=== PATIENT | male | born 1990 | race African-American/Black ===

== ENCOUNTER 2019-06-28 11:44 | Emergency (ER) | payer OTHER ==
[~2019-06-28] VITALS: Ht 175.3 cm; Wt 63.6 kg
[2019-06-28 11:44] VITALS: BP 133/77
[2019-06-28] MEDS ORDERED: IBUP-1022 PO (12:23)
[2019-06-28] MEDS ORDERED: ROBA750T4 PO (12:23)
== END 2019-06-28 12:30 | disposition home or self-care (01) ==
LOC: M ED 11:44
DX: M62.830 Muscle spasm of back (principal)

== ENCOUNTER 2021-06-22 07:52 | Emergency (ER) | payer OTHER ==
[~2021-06-22] VITALS: Ht 175.3 cm; Wt 90.5 kg
[~2021-06-22 07:52] MED LIST: IBUP-1022 PO; ROBA750T4 PO
[2021-06-22] MEDS ORDERED: IBUP200C28 PO (08:07)
[2021-06-22] MEDS ORDERED: KETOROLAC 60MG 2ML VIAL IM ONE (08:50)
[2021-06-22] MEDS ORDERED: LIDOCAINE 5% (LIDODERM) PATCH TD ONE (08:50)
[2021-06-22] MEDS ORDERED: methocarbamoL 750 MG TAB PO ONE (08:50)
--- NOTE | 2021-06-22 09:18 | REP ---
INDICATION: low back pain, fall 1 year ago. COMPARISON: None. TECHNIQUE: Five views lumbosacral spine. FINDINGS: There is no compression fracture or malalignment. There is normal lumbar lordosis. Disc spaces are well preserved. Posterior elements are intact. IMPRESSION: Negative lumbosacral spine series. <Electronically signed by Sanya Palm > 06/22/21 0905
[2021-06-22] MEDS ORDERED: NAPR-837 PO (10:10)
[2021-06-22] MEDS ORDERED: METH-1165 PO (10:10)
[2021-06-22] MEDS ORDERED: ASPE4PAD TOP (10:10)
[2021-06-22 10:24] VITALS: BP 148/87
[2021-06-22] MEDS ORDERED: **NOTE PATIENT COMMENT** MISC XX SCH (21:00)
== END 2021-06-22 10:25 | disposition home or self-care (01) ==
LOC: M ED 07:52
DX: M62.830 Muscle spasm of back (principal)
CPT/HCPCS: 72110; 96372; 99283; J1885

== ENCOUNTER 2021-07-06 07:53 | Emergency (ER) | payer OTHER ==
[~2021-07-06] VITALS: Ht 175.3 cm; Wt 90.8 kg
[~2021-07-06 07:53] MED LIST changes: +ASPE4PAD TOP; +IBUP200C28 PO; +METH-1165 PO; +NAPR-837 PO
--- NOTE | 2021-07-06 09:45 | REP ---
INDICATION: back pain radiating down legs. COMPARISON: None. TECHNIQUE: Contiguous 4 mm thick axial projection images were obtained through the lumbar spine. 2D sagittal and coronal reconstructions were performed. FINDINGS: There is mild anterior wedging of T12 through L3, which could be developmental or acquired. There is maintenance of the normal lumbar lordosis. There is no scoliosis. There is no spondylolisthesis. The facet joints appear normal. At L3-4 there is a broad-based central disc protrusion and bilateral ligamentum flavum hypertrophy, measuring 4 mm in thickness, with mild compression of the thecal sac. There is mild lateral recess stenosis bilaterally. There is no foraminal narrowing. At L4-5 there is a broad-based central disc protrusion and bilateral ligamentum flavum hypertrophy, measuring 4 mm in thickness, with mild compression of the thecal sac. There is mild lateral recess stenosis bilaterally. There is no foraminal narrowing. The SI joints are normal. The perivertebral soft tissues are normal. IMPRESSION: 1. Mild anterior wedging of T12 through L3 which could be developmental or acquired. 2. Disc protrusions and ligamentum flavum hypertrophy at L3-4 and L4-5 with resultant compression of the thecal sac, without central canal stenosis, and bilateral lateral recess stenosis. <Electronically signed by Alberto Nation > 07/06/21 [id number]
[2021-07-06] MEDS ORDERED: METH-1165 PO (09:55)
[2021-07-06 10:12] VITALS: BP 141/83
== END 2021-07-06 10:21 | disposition home or self-care (01) ==
LOC: M ED 07:53
DX: M51.26 Other intervertebral disc displacement, lumbar region (principal); M51.27 Other intervertebral disc displacement, lumbosacral region; G89.29 Other chronic pain

== ENCOUNTER 2021-07-07 10:50 | Emergency (ER) | payer OTHER ==
[~2021-07-07] VITALS: Ht 175.3 cm; Wt 89.1 kg
[2021-07-07] MEDS ORDERED: ONDANSETRON 4MG/2ML VIAL IV ONE (12:10)
[2021-07-07] MEDS ORDERED: MORPHINE 4 MG/ML 1ML VIAL/SYRINGE (J2270) IV ONE (12:10)
[2021-07-07] MEDS ORDERED: NS 1,000 ML IV ONE (12:10)
[2021-07-07 12:34] LABS: BASO # 0.1 10^3/uL (0.0-0.2); BASO % 0.9 % (0.0-1.0); EOS # 0.2 10^3/uL (0.0-0.5); EOS % 2.8 % (0.0-3.0); HEMATOCRIT 52.7 % (42.0-52.0); HEMOGLOBIN 16.7 g/dl (13.5-17.5); LYMPH # 1.4 10^3/uL (1.5-5.0); LYMPH % 26.6 % (24.0-44.0); MEAN CORPUSCULAR HEMOGLOBIN 24.5 pg (27.0-33.0); MEAN CORPUSCULAR HGB CONC 31.7 g/dl (32.0-36.5); MEAN CORPUSCULAR VOLUME 77.4 fl (80.0-96.0); MONO # 0.4 10^3/uL (0.0-0.8); MONO % 7.2 % (2.0-8.0); NEUTROPHILS # 3.4 10^3/uL (1.5-8.5); NEUTROPHILS % 62.3 % (36.0-66.0); PLATELET COUNT, AUTOMATED 245 10^3/uL (150-450); RED BLOOD COUNT 6.81 10^6/uL (4.30-6.10); WHITE BLOOD COUNT 5.4 10^3/uL (4.0-10.0)
--- NOTE | 2021-07-07 12:49 | REP ---
INDICATION: lower abd pain, tender, scrotal/penile pain, micro hematuria. COMPARISON: None. TECHNIQUE: Standard helical technique without intravenous or oral bowel preparatory contrast administration. Stone protocol utilized due to hematuria FINDINGS: Respiratory motion artifact is seen in the lung bases which are otherwise clear. Limited evaluation of the solid intra-abdominal organs and gallbladder show no gross abnormalities. Limited evaluation of the pancreas, adrenal glands, and kidneys show no gross abnormalities. There is no nephroureterolithiasis, hydronephrosis, or hydroureter. There are no urinary bladder calcifications. Limited evaluation of the bowel loops and the mesenteries show no gross abnormalities. There is respiratory motion artifact obscuring the detail on multiple abdominal images. The osseous structures are within normal limits. IMPRESSION: There is no evidence of an acute abnormality. <Electronically signed by Asher Toro > 07/07/21 [id number]
--- NOTE | 2021-07-07 12:54 | REP ---
INDICATION: scrotal, penile pain, micro hematuria, tingling groin. COMPARISON: None. TECHNIQUE: Real-time sonographic evaluation of the testicles with Doppler. FINDINGS: Right testicle measures 4 x 2.2 x 3.2 cm and left testicle measures 3.6 x 1.9 x 2.8 cm. The testicular parenchymal echo pattern and vascular pattern is within normal limits. The right testicular RI is 0.54 and the left is 0.51. There is no evidence of a varicocele or hydrocele. IMPRESSION: Within normal limits <Electronically signed by Asher Toro > 07/07/21 1254
[2021-07-07 12:57] LABS: ALBUMIN 4.2 GM/DL (3.2-5.2); BILIRUBIN,DIRECT 0.2 MG/DL (0.0-0.2); BILIRUBIN,TOTAL 1.2 MG/DL (0.2-1.0); TOTAL PROTEIN 8.1 GM/DL (6.4-8.2)
[2021-07-07] MEDS ORDERED: KETOROLAC 30 MG/ML 1ML VIAL IV ONE (17:20)
--- NOTE | 2021-07-07 17:35 | REPVR ---
PROCEDURE INFORMATION: Exam: MR Lumbar Spine Without Contrast Exam date and time: 07/07/2021 4:07 PM Age: 31 years old Clinical indication: Low back pain; Additional info: Tingling, pain groin, HX low back pain TECHNIQUE: Imaging protocol: Multiplanar magnetic resonance images of the lumbar spine without intravenous contrast. COMPARISON: CT Spine, lumbar w/o contrast 07/06/2021 8:57 AM FINDINGS: Vertebrae: No acute fracture in the lumbar spine. Mild straightening of the normal lumbar lordosis. 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 Spinal cord: The conus medullaris is normal appearance of the T12-L1 level. L1-L2: No significant spinal canal stenosis or neural foraminal narrowing. L2-L3: Mildly bulging annulus with resultant mild spinal canal stenosis but no significant narrowing of the lateral recesses or neural foramen. L3-L4: Mild spinal canal stenosis without obvious compression of the exiting L4 nerve roots. The neural foramina are patent. L4-L5: No significant spinal canal stenosis or neural foraminal narrowing. L5-S1: No significant spinal canal stenosis or neural foraminal narrowing. Soft tissues: Unremarkable. 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 No evidence of disc herniation or neural compromise. Electronically signed by: Joyce Ramirez On 07/07/2021 17:34:56 PM
[2021-07-07 18:24] VITALS: BP 134/84
--- NOTE | 2021-07-08 15:07 | ED PDOC ---
Post-Departure Follow-Up radiology repo rtfaxed to [facility] Elisabeth Guzmán MD Jul 08, 2021 15:07
== END 2021-07-07 18:26 | disposition home or self-care (01) ==
LOC: M ED 10:50
DX: R10.30 Lower abdominal pain, unspecified (principal); M54.5 Low back pain; N50.82 Scrotal pain
CPT/HCPCS: 72148; 74176; 76870; 80047; 80076; 81001; 83690; 85025; 93976; 96361; 96374; 96375; 99284; J1885; J2270; J2405

== ENCOUNTER 2021-08-20 14:46 | Emergency (ER) | payer OTHER ==
[~2021-08-20] VITALS: Ht 175.3 cm; Wt 81.8 kg
[2021-08-20] MEDS ORDERED: METH4PACK (14:53)
[2021-08-20] MEDS ORDERED: GABA-282 (14:53)
--- OUTSIDE RECORDS SUMMARY | 2021-08-20 14:55 | CCD ---
Author Author [facility] Organization [facility] Address Unknown Phone Unavailable Care Team Providers Care Log Sawyer Name Role Phone Feola, T Brianne PA Unavailable Unavailable Feola, T Brianne PA Unavailable Unavailable Feola, T Brianne PA Unavailable Unavailable Feola, T Brianne PA Unavailable Unavailable Feola, T Brianne PA Unavailable Unavailable Feola, T Brianne PA Unavailable Unavailable Feola, T Brianne PA Unavailable Unavailable Feola, T Brianne PA Unavailable Unavailable Feola, T Brianne PA Unavailable Unavailable Feola, T Brianne PA Unavailable Unavailable Feola, T Brianne PA Unavailable Unavailable Feola, T Brianne PA Unavailable Unavailable Feola, T Brianne PA Unavailable Unavailable Feola, T Brianne PA Unavailable Unavailable Feola, T Brianne PA Unavailable Unavailable Feola, T Brianne PA Unavailable Unavailable Feola, T Brianne PA Unavailable Unavailable Feola, T Brianne PA Unavailable Unavailable Feola, T Brianne PA Unavailable Unavailable Feola, T Brianne PA Unavailable Unavailable Feola, T Brianne PA Unavailable Unavailable Feola, T Brianne PA Unavailable Unavailable Feola, T Brianne PA Unavailable Unavailable Feola, T Brianne PA Unavailable Unavailable Feola, T Brianne PA Unavailable Unavailable Feola, T Brianne PA Unavailable Unavailable Feola, T Brianne PA Unavailable Unavailable Feola, T Brianne PA Unavailable Unavailable Feola, T Brianne PA Unavailable Unavailable Feola, T Brianne PA Unavailable Unavailable Feola, T Brianne PA Unavailable Unavailable Feola, T Brianne PA Unavailable Unavailable Feola, T Brianne PA Unavailable Unavailable Feola, T Brianne PA Unavailable Unavailable Feola, T Brianne PA Unavailable Unavailable Feola, T Brianne PA Unavailable Unavailable Feola, T Brianne PA Unavailable Unavailable Feola, T Brianne PA Unavailable Unavailable Feola, T Brianne PA Unavailable Unavailable Feola, T Brianne PA Unavailable Unavailable Feola, T Brianne PA Unavailable Unavailable Re-disclosure Warning The records that you are about to access may contain information from federally-assisted alcohol or drug abuse programs. If such information is present, then the following federally mandated warning applies: This information has been disclosed to you from records protected by federal confidentiality rules (42 CFR part 2). The federal rules prohibit you from making any further disclosure of this information unless further disclosure is expressly permitted by the written consent of the person to whom it pertains or as otherwise permitted by 42 CFR part 2. A general authorization for the release of medical or other information is NOT sufficient for this purpose. The Federal rules restrict any use of the information to criminally investigate or prosecute any alcohol or drug abuse patient.The records that you are about to access may contain highly sensitive health information, the redisclosure of which is protected by Article 27-F of the [facility] Public Health law. If you continue you may have access to information: Regarding HIV / AIDS; Provided by facilities licensed or operated by the [facility] Office of Mental Health; or Provided by the [facility] Office for People With Developmental Disabilities. If such information is present, then the following [facility] mandated warning applies: This information has been disclosed to you from confidential records which are protected by state law. State law prohibits you from making any further disclosure of this information without the specific written consent of the person to whom it pertains, or as otherwise permitted by law. Any unauthorized further disclosure in violation of state law may result in a fine or nursing home sentence or both. A general authorization for the release of medical or other information is NOT sufficient authorization for further disc losure. Encounters Encounter Providers Location Date Indications Data Source(s ) Outpatient Attender: Brianne Bay CASTANON 021 06:36:48 PM EDT - 04/04/2021 07:15:17 PM EDT [facility] ([facility] ) Outpatient 04/04/2021 06:28:40 PM EDT [facility] ([facility]) Immunizations Vaccine Date Status Description Data Source(s) COVID-19 VACCINE Moderna 02/18/2021 12:00:00 AM EDT completed [facility] Vaccine Series Complete: YESThis Data wa s Submitted to [facility] Via G[employer]mpact Driven. COVID-19 VACCINE Moderna 01/21/2021 12:00:00 AM EDT completed [facility] Vaccine Series Complete: NOThis Data was Submitted to [facility] Via Optony. Medications No Information Insurance Providers Payer name Policy type / Coverage type Policy ID Covered alliance party ID Covered alliance party's relationship to saavedra Policy Saavedra Plan Information / [id number] Self 01 [id number] [facility] [employer] [id number] Problems, Conditions, and Diagnoses No Information Surgeries/Procedures No Information Results ID Date Data Source [id number] 04/04/2021 05:58:00 PM EDT [facility] Name Value Range Interpretation Code Description Data Emy rce(s) Supporting Document(s) SARS-CoV-2 RNA Resp Ql YOBANY+probe NOT DETECTED [facility] This lab was ordered by LESLEE palbo and reported by LESLEE Mccormick. Procedure Social History No Information
[2021-08-20] MEDS ORDERED: KETOROLAC 60MG 2ML VIAL IM ONE (21:30)
--- OUTSIDE RECORDS SUMMARY | 2021-08-20 21:38 | CCD ---
Author Author [facility] Organization [facility] Address Unknown Phone Unavailable Care Team Providers Care Instructor Tap Dancing Name Role Phone Feola, T Brianne PA [...] is protected by Article 27-F of the [facility] Public Health law. If you continue you may have access to information: Regarding HIV / AIDS; Provided by facilities licensed or operated by the [facility] Office of Mental Health; or Provided by the [facility] Office for People With Developmental Disabilities. If such information is present, then the following [facility] mandated warning applies: This information has been [...] law may result in a fine or prison sentence or both. A general authorization for the release of medical or other information is NOT sufficient authorization for further disc losure. Encounters Encounter Providers Location Date Indications Data Source(s ) Outpatient Attender: Brianne Bay CASTANON 021 06:36:48 PM EDT - 04/04/2021 07:15:17 PM EDT [facility] ([facility] ) Outpatient 04/04/2021 06:28:40 PM EDT [facility] ([facility]) Immunizations Vaccine Date Status Description Data Source(s) COVID-19 VACCINE Moderna 02/18/2021 12:00:00 AM EDT completed [facility] Vaccine Series Complete: YESThis Data wa s Submitted to [facility] Via [email or web address]. COVID-19 VACCINE Moderna 01/21/2021 12:00:00 AM EDT completed [facility] Vaccine Series Complete: NOThis Data was Submitted to [facility] Via Vaunte. Medications No Information Insurance Providers Payer name Policy type / Coverage type Policy ID Covered republican ID Covered republican's relationship to saavedra Policy Saavedra Plan Information / [id number] Self 01 [id number] [facility] [employer] [id number] Problems, Conditions, and Diagnoses No Information Surgeries/Procedures No Information Results ID Date Data Source [id number] 04/04/2021 05:58:00 PM EDT [facility] Name Value Range Interpretation Code Description Data Emy rce(s) Supporting Document(s) SARS-CoV-2 RNA Resp Ql YOBANY+probe NOT DETECTED [facility] This lab was ordered by LESLEE pablo and reported by LESLEE Mccormick. Procedure Social History No Information
[2021-08-20 22:06] VITALS: BP 128/67
== END 2021-08-20 22:08 | disposition home or self-care (01) ==
LOC: M ED 14:46
DX: G89.29 Other chronic pain (principal); M51.36 Other intervertebral disc degeneration, lumbar region; Z79.899 Other long term (current) drug therapy
CPT/HCPCS: 96372; 99283; J1885

== ENCOUNTER 2021-10-26 19:00 | Emergency (ER) | payer OTHER ==
[~2021-10-26] VITALS: Ht 175.3 cm; Wt 87.7 kg
[~2021-10-26 19:00] MED LIST changes: +GABA-282; +LORA-674; +MELO15TA28; +METH4PACK; +OMEP-173 PO; +TIZA10TA
[2021-10-26] MEDS ORDERED: GI COCKTAIL 50ML BTL(HYOSCYAMINE/MAALOX/LIDOCAINE VISCOUS)(1:3:1) PO ONE (20:25)
[2021-10-26] MEDS ORDERED: METOCLOPRAMIDE INJ 10MG/2ML VIAL (J2765 PER 1) IV ONE (20:25)
[2021-10-26] MEDS ORDERED: PANTOPRAZOLE 40MG VIAL (C9113 PER 1) IV ONE (20:25)
[2021-10-26] MEDS ORDERED: KETOROLAC 30 MG/ML 1ML VIAL IV ONE (21:00)
[2021-10-26 22:46] VITALS: BP 126/66
== END 2021-10-26 22:48 | disposition home or self-care (01) ==
LOC: M ED 19:00
DX: R06.6 Hiccough (principal); E11.9 Type 2 diabetes mellitus without complications; I10 Essential (primary) hypertension; Z79.899 Other long term (current) drug therapy
CPT/HCPCS: 96374; 96375; 99284; C9113; J1885; J2765

== ENCOUNTER 2021-11-05 10:35 | Emergency (ER) | payer OTHER ==
[~2021-11-05] VITALS: Ht 175.3 cm; Wt 89.6 kg
[2021-11-05 10:36] VITALS: BP 141/95
[2021-11-05] MEDS ORDERED: NS 1,000 ML IV ONE (13:20)
[2021-11-05] MEDS ORDERED: ONDANSETRON 4MG/2ML VIAL IV ONE (13:20)
[2021-11-05 13:46] LABS: BASO # 0.1 10^3/uL (0.0-0.2); EOS # 0.3 10^3/uL (0.0-0.5); EOS % 6.6 % (0.0-3.0); HEMATOCRIT 50.2 % (42.0-52.0); HEMOGLOBIN 16.3 g/dl (13.5-17.5); LYMPH # 2.2 10^3/uL (1.5-5.0); LYMPH % 43.3 % (24.0-44.0); MEAN CORPUSCULAR HEMOGLOBIN 24.6 pg (27.0-33.0); MEAN CORPUSCULAR HGB CONC 32.5 g/dl (32.0-36.5); MEAN CORPUSCULAR VOLUME 75.8 fl (80.0-96.0); MONO # 0.4 10^3/uL (0.0-0.8); MONO % 7.4 % (2.0-8.0); NEUTROPHILS # 2.1 10^3/uL (1.5-8.5); NEUTROPHILS % 41.5 % (36.0-66.0); PLATELET COUNT, AUTOMATED 278 10^3/uL (150-450); RED BLOOD COUNT 6.62 10^6/uL (4.30-6.10)
[2021-11-05 14:25] LABS: ALBUMIN 4.2 GM/DL (3.2-5.2); ALT/SGPT 49 U/L (12-78); BILIRUBIN,DIRECT 0.2 MG/DL (0.0-0.2); BILIRUBIN,TOTAL 0.6 MG/DL (0.2-1.0); BLOOD UREA NITROGEN 11 MG/DL (7-18); CALCIUM LEVEL 9.7 MG/DL (8.5-10.1); CARBON DIOXIDE LEVEL 31 MEQ/L (21-32); CHLORIDE LEVEL 103 MEQ/L (98-107); CREATININE FOR GFR 1.24 MG/DL (0.70-1.30); GLOMERULAR FILTRATION RATE > 60.0 (>60); GLUCOSE, FASTING 80 MG/DL (70-100); LIPASE 170 U/L (73-393); POTASSIUM SERUM 4.1 MEQ/L (3.5-5.1); SODIUM LEVEL 139 MEQ/L (136-145)
== END 2021-11-05 15:24 | disposition home or self-care (01) ==
LOC: M ED 10:35
DX: R19.7 Diarrhea, unspecified (principal); Z86.16 Personal history of COVID-19; I10 Essential (primary) hypertension; K21.9 Gastro-esophageal reflux disease without esophagitis
CPT/HCPCS: 80048; 80076; 83690; 85025; 96361; 96374; 99283; J2405

== ENCOUNTER 2021-12-02 19:24 | Emergency (ER) | payer OTHER ==
[~2021-12-02] VITALS: Ht 175.3 cm; Wt 87.5 kg
[2021-12-02 19:24] VITALS: BP 139/84
[2021-12-02] MEDS ORDERED: BACL10TA2 PO (19:48)
[2021-12-02] MEDS ORDERED: CYCL5TAB PO (23:09)
[2021-12-02] MEDS ORDERED: PRED20TA PO (23:09)
[2021-12-02] MEDS ORDERED: predniSONE 20 MG TAB PO ONE (23:10)
[2021-12-02] MEDS ORDERED: CYCLOBENZAPRINE 10MG TABLET PO ONE (23:10)
== END 2021-12-02 23:22 | disposition home or self-care (01) ==
LOC: M ED 19:24
DX: G89.29 Other chronic pain (principal); M54.9 Dorsalgia, unspecified; Z79.899 Other long term (current) drug therapy
CPT/HCPCS: 99282; J7512

== ENCOUNTER 2022-01-08 17:07 | Emergency (ER) | payer OTHER ==
[~2022-01-08] VITALS: Ht 175.3 cm; Wt 90.1 kg
[~2022-01-08 17:07] MED LIST changes: +BACL10TA2 PO; +CYCL5TAB PO; +PRED20TA PO
[2022-01-08] MEDS ORDERED: IBUP80TA (17:46)
[2022-01-08] MEDS ORDERED: VITA1CAP25 (17:46)
[2022-01-08] MEDS ORDERED: ACETAMINOPHEN 325 MG TAB PO ONE (22:10)
[2022-01-08] MEDS ORDERED: KETOROLAC 60MG 2ML VIAL IM ONE (22:10)
[2022-01-08] MEDS ORDERED: diazePAM 5MG TABLET PO ONE (22:10)
[2022-01-08] MEDS ORDERED: CYCL-707 PO (22:27)
[2022-01-08 22:55] VITALS: BP 126/78
== END 2022-01-08 22:56 | disposition home or self-care (01) ==
LOC: M ED 17:07
DX: M50.30 Other cervical disc degeneration, unspecified cervical region (principal); E11.9 Type 2 diabetes mellitus without complications; I10 Essential (primary) hypertension; Z79.899 Other long term (current) drug therapy
CPT/HCPCS: 72125; 96372; 99283; J1885

== ENCOUNTER → 2022-03-20 | Outpatient (REF) ==
[~2022-03-20] MED LIST changes: +CYCL-707 PO; +IBUP80TA; +VITA1CAP25
== END ==
LOC: M PLAIMG 10:14
PROVIDERS: ATTEND Internal Medicine
DX: R06.02 Shortness of breath (principal); M54.9 Dorsalgia, unspecified

== ENCOUNTER → 2023-06-02 | Outpatient (REF) | payer OTHER ==
[2023-06-02 13:04] LABS: SEMEN APPEARANCE OPAQUE (OPAQUE); SEMEN VISCOSITY LIQUID (LIQUID); SEMEN VOLUME 1.5 ml (2.0-5.0)
[2023-06-02 13:05] LABS: SPERM CONCENTRATION 137.2 M/ml (>=15.0); WBC CONCENTRATION <=1 M/ml (<=1 M/ml)
== END ==
LOC: M LAB REF 12:40
PROVIDERS: ATTEND Family Medicine
DX: N46.9 Male infertility, unspecified (principal)

== ENCOUNTER → 2024-03-22 | Outpatient (REF) | payer OTHER ==
[~2024-03-22] MED LIST changes: +LORA-1041; -LORA-674
[2024-03-22 14:44] LABS: SEMEN APPEARANCE OPAQUE (OPAQUE); SEMEN VISCOSITY LIQUID (LIQUID); SEMEN VOLUME 1.7 ml (2.0-5.0); SEMEN pH 8.5 (7.0-8.0); SPERM CONCENTRATION 124.7 M/ml (>=15.0); WBC CONCENTRATION <=1 M/ml (<=1 M/ml)
== END ==
LOC: M LAB REF 14:03
PROVIDERS: ATTEND Obstetrics & Gynecology
DX: N46.8 Other male infertility (principal)